=== PATIENT | female | born 2000 | race Caucasian/White ===

== ENCOUNTER 2024-04-16 09:43 | Emergency (ER) | payer MEDICAID, SELFPAY ==
[2024-04-16 10:10] VITALS: BP 132/88; PULSE 83; RESP 18; TEMP 37.2; O2SAT 97; BMI 50.9
--- NOTE | 2024-04-16 10:16 | EDNOTE_ITS ---
Upper Respiratory Inf. RME/HPI General Chief Complaint: Flu Like Symptoms Stated Complaint: FLU SYMPTOMS FOR 3 DAYS Time Seen by Provider: 04/16/24 09:48 Source: patient, RN notes reviewed and old records reviewed Arrival date/time: 04/16/24 09:43 Mode of arrival: ambulatory Limitations: no limitations RME / HPI RME / HPI Narrative: 23yof presents to ED for congestion, cough, sore throat x 3 days. Patient reports recent strep exposure. Patient c/o difficulty breathing through nose 2/2 congestion but no actual sob. She reports body aches, headache and generalized back pain with cough. No fever, cp, n/v or dizziness reported. No medications or treatments since symptom onset. Related Data Home Medications ?Medication ?Instructions ?Recorded ?Confirmed gemfibrozil 600 mg tablet 600 mg PO BID 12/13/18 03/30/19 levothyroxine 200 mcg tablet 200 mcg PO QDAY 12/13/18 03/30/19 metformin 500 mg tablet 500 mg PO BID 12/13/18 03/30/19 Previous Rx's ?Medication ?Instructions ?Recorded calcium carbonate 500 mg PO BID #60 tabs 03/21/19 docusate sodium 100 mg capsule 100 mg PO BID #50 caps 03/21/19 (Colace) hydrocodone 5 mg-acetaminophen 325 1 tab PO Q6H PRN pain #20 tabs 03/21/19 mg tablet ([place]) ibuprofen 600 mg tablet 600 mg PO Q8HR PRN pain (scale 03/21/19 score 4-6) #20 tabs azithromycin 250 mg tablet See Rx Instructions PO .COMPLEX #6 03/30/19 tabs naproxen 500 mg tablet 500 mg PO BID #30 tabs 12/01/22 meloxicam 7.5 mg tablet 7.5 mg PO QDAY #14 tabs 04/19/23 acetaminophen 500 mg tablet 1,000 mg (2 x 500 mg) PO Q6H PRN 05/09/23 (Tylenol Extra Strength) pain #30 tabs ibuprofen 600 mg tablet 600 mg PO Q6H PRN pain #30 tabs 05/09/23 ondansetron 4 mg disintegrating 4 mg PO Q6H PRN nausea and 05/09/23 tablet vomiting #10 tabs acetaminophen 500 mg tablet 1,000 mg (2 x 500 mg) PO Q6H PRN 04/16/24 (Tylenol Extra Strength) fever or pain #30 tabs dextromethorphan-guaifenesin ER 60 1 tab PO BID PRN congestion/cough 04/16/24 mg-1,200 mg tab,extend #20 tabs release,12hr (Mucinex DM) ibuprofen 600 mg tablet 600 mg PO Q6H PRN fever or pain 04/16/24 #30 tabs pseudoephedrine HCl 120 mg 120 mg PO Q12H PRN nasal 04/16/24 tablet,extended release (Sudafed congestion #12 tabs 12 Hour) Allergies Allergy/AdvReac Type Severity Reaction Status Date / Time No Known Allergies Allergy Verified 04/16/24 09:46 Review of Systems Review of Systems Systems Reviewed: All systems reviewed, normal except as documented Constitutional Constitutional: Reports chills, Reports fever(s) and Reports headache(s) ENT Ears, Nose, Mouth, and Throat: Denies dizziness, Reports headache(s), Reports nasal congestion and Reports sore throat Cardiovascular Cardiovascular: Denies chest pain and Denies dyspnea Respiratory Respiratory: Reports cough and Denies dyspnea Gastrointestinal Gastrointestinal: Denies nausea and Denies vomiting Musculoskeletal Musculoskeletal: Reports back pain and Reports myalgias Neurologic Neurologic: Denies dizziness and Reports headache(s) Past Medical History Past Medical History GASTROINTESTINAL: Positive Gastroesophageal Reflux Disease (NO MED) and Obesity ENDOCRINE: Positive Diabetes Mellitus Type 2 and Hypothyroidism (TAKES MED) OTHER HISTORY: Positive Cancer (THYROID CA?) Social History SMOKING STATUS: Never smoker SUBSTANCE USE: marijuana ALCOHOL: Current (social) ED Exam General Limitations: Present no limitations General appearance: Present alert, in no apparent distress and obese Head Head exam: Present atraumatic and normocephalic Eye Eye exam: Present normal appearance, PERRL and EOMI ENT ENT exam: Present normal oropharynx, mucous membranes moist, TM's normal bilaterally and other (Mild UAC) Neck Neck exam: Present normal inspection and full ROM Chest Chest inspection: Present normal inspection and symmetric chest wall rise; Absent tenderness Respiratory Respiratory exam: Present normal lung sounds bilaterally and other (No wheezing, rales or rhonchi); Absent respiratory distress Cardiovascular Cardiovascular exam: Present regular rate and normal rhythm Extremities Exam Extremities exam: Present normal inspection and full ROM Back Exam Back exam: Present paraspinal tenderness (generalized) Neurological Exam Neurological exam: Present alert and oriented X3 Psychiatric Psychiatric exam: Present normal affect and normal mood Skin Skin exam: Present warm, dry, intact and normal color Course Quality Measures none Orders Category Date Time Status Bedside COVID-19 Antigen Test NOW Care 04/16/24 10:15 Completed Bedside Influenza A&B Antigen Test NOW Care 04/16/24 10:15 Completed Strep A Rapid Stat Lab 04/16/24 10:18 Completed Dexamethasone Inj [Decadron Inj] Med 04/16/24 10:16 Discontinued 10 mg PO X1 ONE Ibuprofen Tab [Motrin Tab] Med 04/16/24 10:16 Discontinued 600 mg PO X1 ONE Vital Signs Vital signs: Vital Signs Temperature 98.9 F 04/16/24 10:10 Pulse Rate 83 04/16/24 10:10 Respiratory Rate 18 04/16/24 10:10 Blood Pressure 132/88 H 04/16/24 10:10 Pulse Oximetry (%) 97 04/16/24 10:10 Oxygen Delivery Method Room Air 04/16/24 10:10 Upper Respiratory Infection MDM Narrative MDM Narrative:: 23yof presents to ED for congestion, cough, sore throat x 3 days. Patient reports recent strep exposure. Patient c/o difficulty breathing through nose 2/2 congestion but no actual sob. She reports body aches, headache and generalized back pain with cough. No fever, cp, n/v or dizziness reported. No medications or treatments since symptom onset. Patient is non-toxic appearing, afebrile, vitals are stable. No evidence of respiratory distress or hypoxia. Suspect viral etiology of symptoms. Encouraged rest, fluids, symptomatic treatment, fever mgmt prn. Stable for dc, RTED precautions given. Patient data External records reviewed:: [facility] previous records (05/09/23 ED visit for left ovarian cyst) Clinical information provided by:: patient Social determinants that could affect healthcare access:: other (specify) (poor access to healthcare) Patient has the following chronic illnesses:: obesity, GERD, hypothyroid How is presenting disease/condition affected by chronic disease/condition?: exacerbated by Evaluation data The following diagnostics were reviewed and interpreted by me:: lab results Lab and/or radiology exams considered but not ordered:: CXR: lungs clear, no respiratory distress or hypoxia Interpretation Summary: negative covid, flu, strep Medications / Prescriptions Medications or Prescriptions considered but not ordered:: no antibiotics recommended at this time Medication administrations:: Medication Administration History Discontinued Medications Dexamethasone Sodium Phosphate (Dexamethasone Sod Phos Inj 10 Mg/Ml Vial) 10 mg PO X1 ONE Stop: 04/16/24 10:17 Last Admin: 04/16/24 10:53 Dose: 10 mg Documented By: LELO Ibuprofen (Ibuprofen Tab 600 Mg Tablet) 600 mg PO X1 ONE Stop: 04/16/24 10:17 Last Admin: 04/16/24 10:53 Dose: 600 mg Documented By: LELO above medications administered in ED Consultations Consultation(s) initiated? (list below): No Diagnosis Upper Respiratory Differential Diagnosis: upper respiratory infection, viral infection, bronchitis, influenza and pharyngitis Most likely diagnosis given after review of the tests above:: URI, viral pharyngitis Admission Indicated Admission indicated?: not indicated Admission Request Was there a request for admission?: No Disposition Plan Disposition Plan: Discharge Discharge Attestation Discharge Attestation: The patient and all family members were given an opportunity to ask questions and understood the discharge instructions. Discharge instructions specifically effects, indications for sooner follow up or return to the emergency department, and the expected course of current diagnosis. Patient condition: Stable Discharge Plan Plan Patient Disposition: HOME (Self Care) Patient condition on transfer: Stable Prescriptions/Referrals Prescriptions/Med Rec: New dextromethorphan-guaifenesin [Mucinex DM] 60-1,200 mg tablet extended release 12 hr 1 tab PO BID PRN (Reason: congestion/cough) Qty: 20 0RF pseudoephedrine HCl [Sudafed 12 Hour] 120 mg tablet extended release 120 mg PO Q12H PRN (Reason: nasal congestion) Qty: 12 0RF ibuprofen 600 mg tablet 600 mg PO Q6H PRN (Reason: fever or pain) Qty: 30 0RF acetaminophen [Tylenol Extra Strength] 500 mg tablet 1,000 mg PO Q6H PRN (Reason: fever or pain) Qty: 30 0RF No Action gemfibrozil 600 mg Tablet 600 mg PO BID metformin 500 mg Tablet 500 mg PO BID levothyroxine 200 mcg Tablet 200 mcg PO QDAY docusate sodium [Colace] 100 mg capsule 100 mg PO BID Qty: 50 0RF hydrocodone-acetaminophen [[place]] 5-325 mg tablet 1 tab PO Q6H MDD 4 PRN (Reason: pain) Qty: 20 0RF ibuprofen 600 mg tablet 600 mg PO Q8HR PRN (Reason: pain (scale score 4-6)) Qty: 20 0RF calcium carbonate 500 mg calcium (1,250 mg) tablet,chewable 500 mg PO BID Qty: 60 0RF azithromycin 250 mg tablet See Rx Instructions .ROUTE .COMPLEX Qty: 6 0RF Rx Instructions: take 500 mg today (day 1), then 250 mg for 4 days (days 2-5) naproxen 500 mg tablet 500 mg PO BID Qty: 30 0RF meloxicam 7.5 mg tablet 7.5 mg PO QDAY Qty: 14 0RF ibuprofen 600 mg tablet 600 mg PO Q6H PRN (Reason: pain) Qty: 30 0RF ondansetron 4 mg tablet,disintegrating 4 mg PO Q6H PRN (Reason: nausea and vomiting) Qty: 10 0RF acetaminophen [Tylenol Extra Strength] 500 mg tablet 1,000 mg PO Q6H PRN (Reason: pain) Qty: 30 0RF Referrals: Felipe Khan MD [Primary Care Provider] - In 1 week Problem List Clinical Impression: Upper respiratory infection, Viral pharyngitis Patient/Caregiver Discharge Instructions Education Materials: Self-Care for Sore Throats, ED URI, Viral, No Abx (Adult) Print Language: Egyptian Stand Alone Forms: Germania Award Info., Patient Portal Info Letter PA/POSITION CLASSIFICATION MANAGER Supervising Physician PA/POSITION CLASSIFICATION MANAGER Supervising Physician: Chelsi
[2024-04-16 10:44] LABS: Strep A Rapid Negative (Negative)
[2024-04-16] MEDS: DEXAMETHASONE SOD PHOS INJ 10 MG/ML VIAL PO (10:53)
[2024-04-16] MEDS: IBUPROFEN TAB 600 MG TABLET PO (10:53)
== END 2024-04-16 11:34 | disposition home or self-care (01) ==
PROVIDERS: Physician Assistant; Emergency Provider Emergency Medicine; PCP Family Medicine; Referring Provider Emergency Medicine
DX: J02.8 Acute pharyngitis due to other specified organisms (principal); B97.89 Other viral agents as the cause of diseases classified elsewhere
CPT/HCPCS: 87400; 87651; 87811; 99283; J1100; A9270

== ENCOUNTER 2024-12-08 05:40 | Emergency (ER) | payer MEDICAID, SELFPAY ==
[2024-12-08 05:41] VITALS: BMI 48.2
[2024-12-08 06:08] VITALS: BP 148/100; PULSE 64; RESP 19; TEMP 36.9; O2SAT 99
--- NOTE | 2024-12-08 06:19 | EDNOTE_ITS ---
<Statement entered by Julee Fong MD - 12/08/24 15:27> As co-signing physician, I was present and available for consult prn. I concur with the plan and care as documented by the midlevel provider. ED Dental RME/HPI General Chief complaint: Dental/Oral/Throat Stated complaint: RT FACIAL SWELLING, DENTAL PAIN Time Seen by Provider: 12/08/24 06:11 Source: patient Arrival date/time: 12/08/24 05:40 24-year-old female with no known medical history presents to the emergency room with a chief complaint of right facial swelling, dental pain, and a fracture tooth x 3 days Mode of arrival: ambulatory Limitations: no limitations Related Data Home Medications ?Medication ?Instructions ?Recorded ?Confirmed gemfibrozil 600 mg tablet 600 mg PO BID 12/13/1803/30 levothyroxine 200 mcg tablet 200 mcg PO QDAY 12/13/18 03/30/19 metformin 500 mg tablet 500 mg PO BID 12/13/1803/30 Previous Rx's ?Medication ?Instructions ?Recorded calcium carbonate 500 mg PO BID #60 tabs 03/21 docusate sodium 100 mg capsule 100 mg PO BID #50 caps 03/21/19 (Colace) hydrocodone 5 mg-acetaminophen 325 1 tab PO Q6H PRN pa in #20 tabs 03/21/19 mg tablet ([place]) ibuprofen 600 mg tablet 600 mg PO Q8HR PRN pain (sca le 03/21/19 score 4-6) #20 tabs azithromycin 250 mg tablet See Rx Instructions PO .COM PLEX #6 03/30/19 tabs naproxen 500 mg tablet 500 mg PO BID #30 tabs 12/01 meloxicam 7.5 mg tablet 7.5 mg PO QDAY #14 tabs 04/02 12/23 acetaminophen 500 mg tablet 1,000 mg (2 x 500 mg) PO Q 6H PRN 05/09/23 (Tylenol Extra Strength) pain #30 tabs ibuprofen 600 mg tablet 600 mg PO Q6H PRN pain #30 t abs 05/09/23 ondansetron 4 mg disintegrating 4 mg PO Q6H PRN nausea and 05/09/23 tablet vomiting #10 tabs acetaminophen 500 mg tablet 1,000 mg (2 x 500 mg) PO Q 6H PRN 04/16/24 (Tylenol Extra Strength) fever or pain #30 tabs dextromethorphan-guaifenesin ER 60 1 tab PO BID PRN co ngestion/cough 04/16/24 mg-1,200 mg tab,extend #20 tabs release,12hr (Mucinex DM) ibuprofen 600 mg tablet 600 mg PO Q6H PRN fever or p ain 04/16/24 #30 tabs pseudoephedrine HCl 120 mg 120 mg PO Q12H PRN nasal tablet,extended release (Sudafed congestion #12 tabs 12 Hour) clindamycin HCl 300 mg capsule 300 mg PO TID 7 days #2 1 caps 12/08/24 hydrocodone 5 mg-acetaminophen 325 1 tab PO BID PRN pa in #10 tabs 12/08/24 mg tablet Allergies Allergy/AdvReac Type Severity Reaction Status Date / Time No Known Allergies Allergy Verified 12/08/24 05:44 Review of Systems Review of Systems Systems Reviewed: All systems reviewed, normal except as documented Constitutional Constitutional: Reports system reviewed and no additional complaints, except as documented, Denies fatigue, Denies fever(s), Denies headache(s) and Denies weakness Eyes Eyes: Reports system reviewed and no additional complaints, except as documented, Denies blurry vision and Denies change in vision ENT Ears, Nose, Mouth, and Throat: Reports system reviewed and no additional complaints, except as documented, Reports dental pain, Denies otalgia, Denies headache(s), Denies nasal congestion, Denies throat swelling and Denies vertigo Cardiovascular Cardiovascular: Reports system reviewed and no additional complaints, except as documented, Denies chest pain, Denies dyspnea and Denies dyspnea on exertion Respiratory Respiratory: Reports system reviewed and no additional complaints, except as documented, Denies chest congestion, Denies cough, Denies dyspnea, Denies dyspnea on exertion and Denies wheezing Gastrointestinal Gastrointestinal: Reports system reviewed and no additional complaints, except as documented, Denies abdominal pain, Denies cramping, Denies nausea and Denies vomiting Genitourinary Genitourinary: Reports system reviewed and no additional complaints, except as documented Musculoskeletal Musculoskeletal: Reports system reviewed and no additional complaints, except as documented and Denies back pain Integumentary/Breasts Skin/Breast: Reports system reviewed and no additional complaints, except as documented and Denies wounds Neurologic Neurologic: Reports system reviewed and no additional complaints, except as documented, Denies confusion, Denies headache(s), Denies lack of coordination, Denies vertigo and Denies weakness Psychiatric Psychiatric: Reports system reviewed and no additional complaints, except as documented, Denies anxiety, Denies confusion, Denies depression, Denies paranoia, Denies suicidal ideation and Denies tactile hallucinations Endocrine Endocrine: Reports system reviewed and no additional complaints, except as documented and Denies fatigue Hematologic/Lymphatic Hematologic/Lymphatic: Reports system reviewed and no additional complaints, except as documented and Denies lymphadenopathy Allergic/Immunologic Allergic/Immunologic: Reports system reviewed and no additional complaints, except as documented, Denies throat swelling, Denies urticaria and Denies wheezing Past Medical History Past Medical History NEUROLOGIC: Negative Neurological Disorders or Seizures CARDIAC: Negative Cardiac Disorders or Congestive Heart Failure RESPIRATORY: Negative Chronic Obstructive Pulmonary Disease (COPD) or Asthma GASTROINTESTINAL: Positive Gastrointestinal Disorders, Gastroesophageal Reflux Disease (NO MED) and Obesity; Negative Hepatitis GENITOURINARY: Negative Genitourinary Disorders or Renal Disease MUSCULOSKELETAL: Positive Musculoskeletal Disorders ENDOCRINE: Positive Endocrine Disorders, Diabetes Mellitus Type 2 and Hypothyroidism (TAKES MED); Negative Diabetes Mellitus Type 1 HEMATOLOGIC: Negative Blood Disorders or Sickle Cell Disease OTHER HISTORY: Positive Cancer (THYROID CA?); Negative Hospitalization, Autoimmune Disease, Shingles, Falls, Chemotherapy, Radiation Therapy, MRSA, Chicken Pox, Measles or Mumps Family History FAMILY HISTORY: Positive Family Psychiatric Problems (MOTHER(ANXIETY/DEPRESSION)), Family Cardiac Disorders (MOTHER (HTN)), Family Gastrointestinal Problems (MOTHER(GERD)), Family Cancer (MATERNAL GRANDMOTHER(OVARIAN)/MATERNAL GREATGRANDMOTHER(BRAIN TUMOR)) and Family Surgery (SISTER,FATHER); Negative Family Respiratory Disorders or Family Anesthesia Reaction Surgical History SURGICAL: Negative Cardiac Surgery Social History SMOKING STATUS: Never smoker SUBSTANCE USE: marijuana ED Exam General Limitations: Present no limitations General appearance: Present alert and in no apparent distress Head Head exam: Present atraumatic Eye Eye exam: Present normal appearance, PERRL and EOMI ENT ENT exam: Present normal exam, normal oropharynx and mucous membranes moist Expanded ENT Exam Teeth exam: Present dental caries, fractured tooth # and dental tenderness # Teeth numbered: 2 1. Fractured and Dental Tenderness Neck Neck exam: Present normal inspection, full ROM and trachea midline Chest Chest inspection: Present normal inspection and symmetric chest wall rise Respiratory Respiratory exam: Present normal lung sounds bilaterally Cardiovascular Cardiovascular exam: Present regular rate, normal rhythm and normal heart sounds Abdominal Exam Abdominal exam: Present soft and normal bowel sounds Extremities Exam Extremities exam: Present normal inspection and full ROM Back Exam Back exam: Present normal inspection and full ROM Neurological Exam Neurological exam: Present alert, oriented X3 and CN II-XII intact Psychiatric Psychiatric exam: Present normal affect and normal mood Skin Skin exam: Present warm, dry, intact and normal color Course Quality Measures none Orders Category Date Time Status Clindamycin Vial [Cleocin vial] Med 12/08/24 06:19 Discontinued 600 mg IM X1 ONE Ketorolac Inj [Toradol Inj] Med 12/08/24 06:30 Discontinued 30 mg IM X1 ONE Vital Signs Vital signs: Vital Signs Temperature 98.5 F 12/08/24 06:08 Pulse Rate 64 12/08/24 06:08 Respiratory Rate 19 12/08/24 06:08 Blood Pressure 148/100 H 12/08/24 06:08 Pulse Oximetry (%) 99 12/08/24 06:08 Oxygen Delivery Method Room Air 12/08/24 06:08 Dental / Oral MDM Narrative MDM Narrative:: 24-year-old female with no known medical history presents to the emergency room with a chief complaint of right facial swelling, dental pain, and a fracture tooth x 3 days Patient is hemodynamically stable and in no apparent distress. She is afebrile not tachycardic not tachypneic Physical examination shows swelling to the right side of the patient's face. During my ENT examination tooth #5 on the upper right side of her mouth was fractured and appeared infected. Patient states she saw her dentist last week who prescribed her antibiotics. Today the patient states she woke up with swelling to the right side of her face and her symptoms getting worse. Pain medication and antibiotics were given to the patient and the patient was educated to follow-up with her dentist as this tooth is a source of her swelling and needs to be removed Patient was discharged and educated to follow-up with primary care provider in the next 24 to 48 hours and return to the emergency room for any evidence of worsening signs or symptoms Patient data External records reviewed:: [facility] previous records Clinical information provided by:: patient Social determinants that could affect healthcare access:: none Patient has the following chronic illnesses:: No chronic illness How is presenting disease/condition affected by chronic disease/condition?: no chronic disease Evaluation data The following diagnostics were reviewed and interpreted by me:: lab results and radiology exam(s) Lab and/or radiology exams considered but not ordered:: Labs and radiology exams considered in order Interpretation Summary: N/A Medications / Prescriptions Medications or Prescriptions considered but not ordered:: Rx given Medication administrations:: Medication Administration History Discontinued Medications Clindamycin Phosphate (Clindamycin Phos Inj 150 Mg/Ml Vial 6 Ml) 600 mg IM X1 ONE Stop: 12/08/24 06:20 Last Admin: 12/08/24 06:29 Dose: 600 mg Documented By: MONALISA Ketorolac Tromethamine (Ketorolac Inj 30 Mg/Ml Vial) 30 mg IM X1 ONE Stop: 12/08/24 06:31 Last Admin: 12/08/24 06:29 Dose: 30 mg Documented By: MONALISA Medication given Consultations Consultation(s) initiated? (list below): No Diagnosis Dental Differential Diagnosis: dental caries, toothache, dental abscess and fracture of tooth Most likely diagnosis given after review of the tests above:: Toothache Admission Indicated Admission indicated?: not indicated Admission Request Was there a request for admission?: No Disposition Plan Disposition Plan: Discharge Discharge Attestation Discharge Attestation: The patient and all family members were given an opportunity to ask questions and understood the discharge instructions. Discharge instructions specifically effects, indications for sooner follow up or return to the emergency department, and the expected course of current diagnosis. Patient condition: Stable Discharge Plan Plan Patient Disposition: HOME (Self Care) Discharge Disposition comment: Stable Prescriptions/Referrals Prescriptions/Med Rec: New clindamycin HCl 300 mg capsule 300 mg PO TID 7 Days Qty: 21 0RF hydrocodone-acetaminophen 5-325 mg tablet 1 tab PO BID MDD 10mg PRN (Reason: pain) Qty: 10 0RF No Action gemfibrozil 600 mg Tablet 600 mg PO BID metformin 500 mg Tablet 500 mg PO BID levothyroxine 200 mcg Tablet 200 mcg PO QDAY docusate sodium [Colace] 100 mg capsule 100 mg PO BID Qty: 50 0RF hydrocodone-acetaminophen [[place]] 5-325 mg tablet 1 tab PO Q6H MDD 4 PRN (Reason: pain) Qty: 20 0RF ibuprofen 600 mg tablet 600 mg PO Q8HR PRN (Reason: pain (scale score 4-6)) Qty: 20 0RF calcium carbonate 500 mg calcium (1,250 mg) tablet,chewable 500 mg PO BID Qty: 60 0RF azithromycin 250 mg tablet See Rx Instructions .ROUTE .COMPLEX Qty: 6 0RF Rx Instructions: take 500 mg today (day 1), then 250 mg for 4 days (days 2-5) dextromethorphan-guaifenesin [Mucinex DM] 60-1,200 mg tablet extended release 12 hr 1 tab PO BID PRN (Reason: congestion/cough) Qty: 20 0RF pseudoephedrine HCl [Sudafed 12 Hour] 120 mg tablet extended release 120 mg PO Q12H PRN (Reason: nasal congestion) Qty: 12 0RF ibuprofen 600 mg tablet 600 mg PO Q6H PRN (Reason: fever or pain) Qty: 30 0RF acetaminophen [Tylenol Extra Strength] 500 mg tablet 1,000 mg PO Q6H PRN (Reason: fever or pain) Qty: 30 0RF naproxen 500 mg tablet 500 mg PO BID Qty: 30 0RF meloxicam 7.5 mg tablet 7.5 mg PO QDAY Qty: 14 0RF ibuprofen 600 mg tablet 600 mg PO Q6H PRN (Reason: pain) Qty: 30 0RF ondansetron 4 mg tablet,disintegrating 4 mg PO Q6H PRN (Reason: nausea and vomiting) Qty: 10 0RF acetaminophen [Tylenol Extra Strength] 500 mg tablet 1,000 mg PO Q6H PRN (Reason: pain) Qty: 30 0RF Problem List Clinical Impression: Toothache, Dental abscess Patient/Caregiver Discharge Instructions Education Materials: ED Abscess Antibiotic ..., ED Dental Pain Additional Instructions: Please follow-up with your dentist in the next 24 to 48 hours Antibiotics and pain medication was sent to your pharmacy please pick it up and take it as indicated For any evidence of worsening signs or symptoms return to the emergency room immediately Print Language: Maori Stand Alone Forms: Germania Award Info., Work/School Release, Patient Portal Info Letter PA/NURSE CARE MANAGER Supervising Physician PA/NURSE CARE MANAGER Supervising Physician: Dr. FONG
[2024-12-08] MEDS: KETOROLAC INJ 30 MG/ML VIAL IM (06:29)
[2024-12-08] MEDS: CLINDAMYCIN PHOS INJ 150 MG/ML VIAL 6 ML 600 MG IM (06:29)
== END 2024-12-08 06:34 | disposition home or self-care (01) ==
LOC: SERX 06:57
PROVIDERS: Emergency Provider Emergency Medicine; PCP Family Medicine
DX: K04.7 Periapical abscess without sinus (principal)
CPT/HCPCS: 96372; 99282; J0736; J1885

== ENCOUNTER 2024-12-29 01:34 | Emergency (ER) | payer MEDICAID, SELFPAY ==
[2024-12-29 02:05] VITALS: BP 174/138; BP 187/122; PULSE 85; RESP 17; TEMP 37; O2SAT 97
[2024-12-29] MEDS: ONDANSETRON ODT 4 MG TABRAP PO (02:18)
--- NOTE | 2024-12-29 02:53 | XR_ITS ---
Examination: Pelvic ultrasound, transabdominal, complete Technique: Transabdominal ultrasound of the pelvis performed using grayscale imaging Date and time of exam: December 29, 2024, 0431 hours INDICATIONS: Pelvic pain beginning today. FINDINGS: The patient's pain limits assessment uterus Right ovary 3.1 cm arterial flow. Left ovary 5.0 cm arterial flow 16 x 22 mm cyst IMPRESSION: Limited study, lack of patient cooperation Left ovarian simple cyst 16 x 13 x 22 mm No diagnostic visualization uterus
[2024-12-29 03:46] LABS: Basophils # (Auto) 0.1 Thou/mm3 (0.0-0.2); Basophils % (Auto) 1 % (0-2.5); Eosinophils # (Auto) 0.2 Thou/mm3 (0.0-0.5); Eosinophils % (Auto) 2 % (0-10); Hematocrit 40.5 % (36.0-46.0); Hemoglobin 13.2 g/dL (12.0-16.0); Immature Granulocytes Auto 0.03 Thou/mm3 (0.00-0.00); Lymphocytes # (Auto) 2.8 Thou/mm3 (1.0-4.8); Lymphocytes % (Auto) 25 % (10-50); Mean Corpuscular HGB Conc 32.6 g/dl (31.0-37.0); Mean Corpuscular Hemoglobin 29.5 pg (25.0-35.0); Mean Corpuscular Volume 91 fL (80-100); Monocytes # (Auto) 0.5 Thou/mm3 (0.0-0.8); Monocytes % (Auto) 4 % (0-12); Neutrophils # (Auto) 7.9 Thou/mm3 (1.8-7.7); Neutrophils % (Auto) 69 % (37-80); Nucleated Red Blood Cell # 0.00 Thou/mm3 (0.00-0.00); Nucleated Red Blood Cell % 0 /100 WBC (0); Platelet Count 283 Thou/mm3 (140-440); RDW Standard Deviation 47.1 fL (36.4-46.3); Red Blood Count 4.47 Miln/mm3 (4.00-5.20); White Blood Count 11.4 Thou/mm3 (3.6-11.0)
[2024-12-29 04:06] LABS: Alanine Aminotransferase 32 U/L (10-49); Albumin, Serum 5.0 gm/dL (3.5-5.0); Albumin/Globulin Ratio 2.0 (1.2-2.2); Alkaline Phosphatase 82 U/L (46-116); Anion Gap 12 (7-16); Aspartate Amino Transferase 41 U/L (0-34); BUN/Creatinine Ratio 10 Ratio (12-20); Bilirubin,Total 0.6 mg/dL (0.3-1.2); Blood Urea Nitrogen 10 mg/dL (9-23); Calcium 9.9 mg/dL (8.3-10.6); Calcium (Corrected) 9.9 mg/dL (8.5-10.1); Carbon Dioxide 24.7 mMol/L (20.0-31.0); Chloride 103 mMol/L (98-107); Creatinine (Component) 1.0 mg/dL (0.6-1.3); Globulin 2.5 gm/dL (2.3-3.5); Glucose 120 mg/dL (74-106); Lipase 75 U/L (12-53); Osmolality,Calculated 279 (275-295); Potassium 3.9 mMol/L (3.4-5.1); Sodium 140 mMol/L (136-145); Total Protein 7.5 gm/dL (5.7-8.2); eGFR > 60 See Note
--- NOTE | 2024-12-29 05:38 | PRELIM_ITS ---
Pelvic ultrasound (transabdominal) with Doppler and wave Doppler spectral analysis. December 29, 2024 0431 hours Clinical history: Left pelvic pain. Technique: Real-time, grayscale, transabdominal pelvic ultrasound was performed using Duplex scanning including arterial inflow, venous outflow, color and spectral Doppler. Comparison: No prior study is available for comparison. Findings: The uterus and endometrium were not visualized due to patient requesting to interrupt the study because of pain. The right ovary measures 3.1 x 2.1 x 2.6 cm and is unremarkable. The left ovary measures 5.0 x 2.6 x 3.5 cm, mildly complex cystic lesion measuring 1.6 x 1.4 x 2.2 cm. Both ovaries demonstrate color flow and spectral waveforms on Doppler evaluation. There is no adnexal mass. There is no free fluid on the submitted images. Impression: No evidence of ovarian torsion. Uterus and endometrium were not visualized due to patient requesting to interrupt the study. Report Electronically Signed By: Missael Stevenson 12/29/2024 5:37:48 AM [EST]
--- NOTE | 2024-12-29 05:40 | PD.EDRME ---
Rapid Medical Screening Exam FORMERLY [facility], [facility]–1983 Arrival date/time: 12/29/24 01:34 24F with history of hypothyroidism and pancreatitis presents to ED with 1 day of pelvic pain and N/V. Patient denies dysuria/hematuria, diarrhea, and is not sexually active. Chief Complaint: Abdominal Pain Time Seen by Provider: 12/29/24 02:05 Vital signs: Vital Signs Temperature 98.6 F 12/29/24 02:05 Pulse Rate 85 12/29/24 02:05 Respiratory Rate 17 12/29/24 02:05 Blood Pressure 187/122 H 12/29/24 02:05 Pulse Oximetry (%) 97 12/29/24 02:05 Oxygen Delivery Method Room Air 12/29/24 02:05
[2024-12-29 07:05] LABS: Collection Type, Urine Clean Catch
[2024-12-29 07:19] LABS: Bilirubin,Urine Negative (Negative); Blood,Urine Negative (Negative); Clarity,Urine Clear (Clear/Hazy); Color,Urine Colorless (Lt Yel-Yel); Culture Indicated,Urine Not Indicated; Glucose, Urine Negative (Negative); Ketones,Urine Negative (Negative); Leukocyte Esterase,Urine Negative (Negative); Nitrite,Urine Negative (Negative); PH,Urine 6.0 (5.0-7.0); Protein,Urine Negative (Neg - Trace); RBC,Urine 1 /hpf (0-3); Specific Gravity,Urine 1.011 (1.001-1.035); Squamous Epithelial Cell,Urine 1 /hpf (0-5); Urobilinogen,Urine Negative mg/dL (0.0-1.0); WBC,Urine 2 /hpf (0-5)
[2024-12-29 07:27] LABS: HCG Qualitative,Urine Negative
[2024-12-29] MEDS: NAPROXEN 250 MG TABLET 500 MG PO (07:31)
[2024-12-29 07:32] LABS: Amphetamine/Methamp Scrn,U Negative (Negative); Barbiturate Screen,Urine Negative (Negative); Benzodiazepines Screen,Urine Negative (Negative); Benzoylecgonine Screen, Ur Negative (Negative); Fentanyl Screen,Urine Negative (Negative); Opiate Screen,Urine Negative (Negative); THC Screen,Urine Positive (Negative)
[2024-12-29 07:51] VITALS: BP 148/67; PULSE 65; RESP 18; TEMP 36.6; O2SAT 99
--- NOTE | 2025-01-08 15:09 | EDNOTE_ITS ---
ED Abdominal Pain RME/HPI General Chief Complaint: Abdominal Pain Stated complaint: LEFT LOWER ABDOMINAL PAIN Time seen by provider: 12/29/24 02:05 Arrival date/time: 12/29/24 01:34 24-year-old female with a history of hypothyroidism presents to the emergency room with a chief complaint of pelvic pain, nausea, vomiting x 1 day Source: patient Mode of arrival: ambulatory Limitations: no limitations RME / HPI RME / HPI narrative: 12/29/24 01:34 24F with history of hypothyroidism and pancreatitis presents to ED with 1 day of pelvic pain and N/V. Patient denies dysuria/hematuria, diarrhea, and is not sexually active. Related Data Home Medications ?Medication ?Instructions ?Recorded ?Confirmed gemfibrozil 600 mg tablet 600 mg PO BID 12/13/1803/30 levothyroxine 200 mcg tablet 200 mcg PO QDAY 12/13/18 03/30/19 metformin 500 mg tablet 500 mg PO BID 12/13/1803/30 Previous Rx's ?Medication ?Instructions ?Recorded calcium carbonate 500 mg PO BID #60 tabs 03/21 docusate sodium 100 mg capsule 100 mg PO BID #50 caps 03/21/19 (Colace) hydrocodone 5 mg-acetaminophen 325 1 tab PO Q6H PRN pa in #20 tabs 03/21/19 mg tablet (Wayan) ibuprofen 600 mg tablet 600 mg PO Q8HR PRN pain (sca le 03/21/19 score 4-6) #20 tabs azithromycin 250 mg tablet See Rx Instructions PO .COM PLEX #6 03/30/19 tabs naproxen 500 mg tablet 500 mg PO BID #30 tabs 12/01 meloxicam 7.5 mg tablet 7.5 mg PO QDAY #14 tabs 04/02 12/23 acetaminophen 500 mg tablet 1,000 mg (2 x 500 mg) PO Q 6H PRN 05/09/23 (Tylenol Extra Strength) pain #30 tabs ibuprofen 600 mg tablet 600 mg PO Q6H PRN pain #30 t abs 05/09/23 ondansetron 4 mg disintegrating 4 mg PO Q6H PRN nausea and 05/09/23 tablet vomiting #10 tabs acetaminophen 500 mg tablet 1,000 mg (2 x 500 mg) PO Q 6H PRN 04/16/24 (Tylenol Extra Strength) fever or pain #30 tabs dextromethorphan-guaifenesin ER 60 1 tab PO BID PRN co ngestion/cough 04/16/24 mg-1,200 mg tab,extend #20 tabs release,12hr (Mucinex DM) ibuprofen 600 mg tablet 600 mg PO Q6H PRN fever or p ain 04/16/24 #30 tabs pseudoephedrine HCl 120 mg 120 mg PO Q12H PRN nasal tablet,extended release (Sudafed congestion #12 tabs 12 Hour) hydrocodone 5 mg-acetaminophen 325 1 tab PO BID PRN pa in #10 tabs 12/08/24 mg tablet Allergies Allergy/AdvReac Type Severity Reaction Status Date / Time No Known Allergies Allergy Verified 12/08/24 05:44 Review of Systems Review of Systems Systems Reviewed: All systems reviewed, normal except as documented Constitutional Constitutional: Reports system reviewed and no additional complaints, except as documented, Denies fatigue, Denies fever(s), Denies headache(s) and Denies weakness Eyes Eyes: Reports system reviewed and no additional complaints, except as documented, Denies blurry vision and Denies change in vision ENT Ears, Nose, Mouth, and Throat: Reports system reviewed and no additional complaints, except as documented, Denies otalgia, Denies headache(s), Denies nasal congestion, Denies throat swelling and Denies vertigo Cardiovascular Cardiovascular: Reports system reviewed and no additional complaints, except as documented, Denies chest pain, Denies dyspnea and Denies dyspnea on exertion Respiratory Respiratory: Reports system reviewed and no additional complaints, except as documented, Denies chest congestion, Denies cough, Denies dyspnea, Denies dyspnea on exertion and Denies wheezing Gastrointestinal Gastrointestinal: Reports system reviewed and no additional complaints, except as documented, Reports abdominal pain, Reports cramping, Denies nausea and Denies vomiting Genitourinary Genitourinary: Reports system reviewed and no additional complaints, except as documented Musculoskeletal Musculoskeletal: Reports system reviewed and no additional complaints, except as documented and Denies back pain Integumentary/Breasts Skin/Breast: Reports system reviewed and no additional complaints, except as documented and Denies wounds Neurologic Neurologic: Reports system reviewed and no additional complaints, except as documented, Denies confusion, Denies headache(s), Denies lack of coordination, Denies vertigo and Denies weakness Psychiatric Psychiatric: Reports system reviewed and no additional complaints, except as documented, Denies anxiety, Denies confusion, Denies depression, Denies paranoia, Denies suicidal ideation and Denies tactile hallucinations Endocrine Endocrine: Reports system reviewed and no additional complaints, except as documented and Denies fatigue Hematologic/Lymphatic Hematologic/Lymphatic: Reports system reviewed and no additional complaints, except as documented and Denies lymphadenopathy Allergic/Immunologic Allergic/Immunologic: Reports system reviewed and no additional complaints, except as documented, Denies throat swelling, Denies urticaria and Denies wheezing ED Exam General Limitations: Present no limitations Course Quality Measures none Orders Category Date Time Status US pelvic complete Stat Exams 12/29/24 02:53 Completed CBC Stat Lab 12/29/24 03:39 Completed CMP [Comprehensive Metabolic Panel] Stat Lab 12/29/24 03:39 Completed Drug Screen,Urine Stat Lab 12/29/24 05:00 Completed HCG Qualitative,Urine Stat Lab 12/29/24 05:00 Completed Lipase Stat Lab 12/29/24 03:39 Completed Urinalysis, C/S if Indicated Stat Lab 12/29/24 05:00 Completed Naproxen [Naprosyn] Med 12/29/24 05:41 Discontinued 500 mg PO X1 ONE Ondansetron Odt [Zofran Odt] Med 12/29/24 02:06 Discontinued 4 mg PO X1 ONE Vital Signs Vital signs: Vital Signs Temperature 98.6 F 12/29/24 02:05 Pulse Rate 85 12/29/24 02:05 Respiratory Rate 17 12/29/24 02:05 Blood Pressure 187/122 H 12/29/24 02:05 Pulse Oximetry (%) 97 12/29/24 02:05 Oxygen Delivery Method Room Air 12/29/24 02:05 Abdominal Pain MDM MDM Narrative MDM Narrative:: 24-year-old female with a history of hypothyroidism presents to the emergency room with a chief complaint of pelvic pain, nausea, vomiting x 1 day Patient is hemodynamically stable and in no apparent distress Physical examination shows left-sided abdominal pain and tenderness with palpation Ultrasound was completed and shows a left ovarian simple cyst. CBC CMP urinalysis were all within normal limits Patient was discharged and educated to follow-up with primary care provider in the next 24 to 48 hours and return to the emergency room for any evidence of worsening signs or symptoms Patient data External records reviewed:: [facility] previous records Clinical information provided by:: patient Social determinants that could affect healthcare access:: none Patient has the following chronic illnesses:: No chronic illness How is presenting disease/condition affected by chronic disease/condition?: no chronic disease Evaluation data The following diagnostics were reviewed and interpreted by me:: lab results and radiology exam(s) Lab and/or radiology exams considered but not ordered:: Labs and radiology exams considered and ordered Interpretation Summary: Pelvic ultrasound-FINDINGS: The patient's pain limits assessment uterus Right ovary 3.1 cm arterial flow. Left ovary 5.0 cm arterial flow 16 x 22 mm cyst IMPRESSION: Limited study, lack of patient cooperation Left ovarian simple cyst 16 x 13 x 22 mm No diagnostic visualization uterus Medications / Prescriptions Medications or Prescriptions considered but not ordered:: Medication given Medication administrations:: Medication Administration History Discontinued Medications Naproxen (Naproxen 250 Mg Tablet) 500 mg PO X1 ONE Stop: 12/29/24 05:42 Last Admin: 12/29/24 07:31 Dose: 500 mg Documented By: [facility] Ondansetron HCl (Ondansetron Odt 4 Mg Tabrap) 4 mg PO X1 ONE; Protocol Stop: 12/29/24 02:07 Last Admin: 12/29/24 02:18 Dose: 4 mg Documented By: DT Medication given Consultations Consultation(s) initiated? (list below): No Diagnosis Differential diagnosis abdominal pain: abdominal pain, acute appendicitis, diverticulitis, gastroenteritis and other Most likely diagnosis given after review of the tests above:: Ovarian cyst Admission Indicated Admission indicated?: not indicated Admission Request Was there a request for admission?: No Disposition Plan Disposition Plan: Discharge Discharge Attestation Discharge Attestation: The patient and all family members were given an opportunity to ask questions and understood the discharge instructions. Discharge instructions specifically effects, indications for sooner follow up or return to the emergency department, and the expected course of current diagnosis. Patient condition: Stable Discharge Plan Plan Patient Disposition: HOME (Self Care) Discharge Disposition comment: Stable Prescriptions/Referrals Prescriptions/Med Rec: No Action gemfibrozil 600 mg Tablet 600 mg PO BID metformin 500 mg Tablet 500 mg PO BID levothyroxine 200 mcg Tablet 200 mcg PO QDAY docusate sodium [Colace] 100 mg capsule 100 mg PO BID Qty: 50 0RF hydrocodone-acetaminophen [Wayan] 5-325 mg tablet 1 tab PO Q6H MDD 4 PRN (Reason: pain) Qty: 20 0RF ibuprofen 600 mg tablet 600 mg PO Q8HR PRN (Reason: pain (scale score 4-6)) Qty: 20 0RF calcium carbonate 500 mg calcium (1,250 mg) tablet,chewable 500 mg PO BID Qty: 60 0RF azithromycin 250 mg tablet See Rx Instructions .ROUTE .COMPLEX Qty: 6 0RF Rx Instructions: take 500 mg today (day 1), then 250 mg for 4 days (days 2-5) dextromethorphan-guaifenesin [Mucinex DM] 60-1,200 mg tablet extended release 12 hr 1 tab PO BID PRN (Reason: congestion/cough) Qty: 20 0RF pseudoephedrine HCl [Sudafed 12 Hour] 120 mg tablet extended release 120 mg PO Q12H PRN (Reason: nasal congestion) Qty: 12 0RF ibuprofen 600 mg tablet 600 mg PO Q6H PRN (Reason: fever or pain) Qty: 30 0RF acetaminophen [Tylenol Extra Strength] 500 mg tablet 1,000 mg PO Q6H PRN (Reason: fever or pain) Qty: 30 0RF hydrocodone-acetaminophen 5-325 mg tablet 1 tab PO BID MDD 10mg PRN (Reason: pain) Qty: 10 0RF naproxen 500 mg tablet 500 mg PO BID Qty: 30 0RF meloxicam 7.5 mg tablet 7.5 mg PO QDAY Qty: 14 0RF ibuprofen 600 mg tablet 600 mg PO Q6H PRN (Reason: pain) Qty: 30 0RF ondansetron 4 mg tablet,disintegrating 4 mg PO Q6H PRN (Reason: nausea and vomiting) Qty: 10 0RF acetaminophen [Tylenol Extra Strength] 500 mg tablet 1,000 mg PO Q6H PRN (Reason: pain) Qty: 30 0RF Referrals: Felipe Khan MD [Primary Care Provider] - In 1 week Problem List Clinical Impression: Complex cyst of left ovary Patient/Caregiver Discharge Instructions Education Materials: Understanding Ovarian Cysts, Treatment for Ovarian Cysts, ED Ovarian Cyst Additional Instructions: Please follow-up with your primary care provider in the next 24 to 48 hours Your ultrasound was negative for any acute findings however there was an incidental finding of a cystic lesion in your left side. Please follow-up with your primary care provider as a referral to an [employer] may be indicated for further management For any evidence of worsening signs or symptoms return to the emergency room immediately Print Language: Kyrgyz Stand Alone Forms: [employer] Award Info., Patient Portal Info Letter PA/TURNING SANDER TENDER Supervising Physician PA/TURNING SANDER TENDER Supervising Physician: Dr. Lee
== END 2024-12-29 08:24 | disposition home or self-care (01) ==
PROVIDERS: Physician Assistant; Emergency Provider Family Medicine; PCP Family Medicine
DX: N83.292 Other ovarian cyst, left side (principal)
CPT/HCPCS: 36415; 76856; 80053; 80307; 81001; 81025; 83690; 85025; 99283; Q0162; A9270